=== PATIENT | male | born 1950 | race Caucasian/White ===

== ENCOUNTER 2020-01-29 07:21 | Outpatient (CLI) | payer MEDICARE, SELFPAY ==
[2020-01-29 08:22] LABS: Alanine Aminotransferase 17 U/L (4-50); Alkaline Phosphatase 75 U/L (38-126); Aspartate Amino Transferase 21 U/L (17-59); Bilirubin,Total 0.6 mg/dL (0.2-1.3); Blood Urea Nitrogen 19 mg/dL (9-20); Carbon Dioxide 25 mmol/L (22-30); Chloride 106 mmol/L (98-107); Cholesterol 159 mg/dL (0-200); Estimated Glomerular Filt Rate 50; Glucose 160 mg/dL (75-110); HDL Direct 37 mg/dL; Potassium 4.4 mmol/L (3.4-5.0); Sodium 139 mmol/L (137-145); Triglycerides 147 mg/dL (<150)
[2020-01-29 08:34] LABS: LDL Cholesterol Direct 94 mg/dL
[2020-01-29 08:52] LABS: Prostate Specific Antigen 1.8 ng/mL (< OR = 4.0)
[2020-01-29 09:11] LABS: Hemoglobin A1C 6.9 % (<5.7)
== END 2020-01-29 07:22 | disposition home or self-care (01) ==
PROVIDERS: Visit Provider Surgery
DX: E11.29 Type 2 diabetes mellitus with other diabetic kidney complication (principal); E78.5 Hyperlipidemia, unspecified; Z12.5 Encounter for screening for malignant neoplasm of prostate; R39.9 Unspecified symptoms and signs involving the genitourinary system
CPT/HCPCS: 36415; 80053; 80061; 83036; 84153; G0103

== ENCOUNTER 2020-06-16 06:31 | Outpatient (CLI) | payer MEDICARE, SELFPAY ==
[2020-06-16 07:49] LABS: Hemoglobin A1C 6.6 % (<5.7)
[2020-06-16 07:53] LABS: Alanine Aminotransferase 30 U/L (4-50); Albumin Level 4.3 g/dL (3.5-5.1); Alkaline Phosphatase 75 U/L (38-126); Anion Gap 12.6 mmol/L (7-16); Aspartate Amino Transferase 30 U/L (17-59); Bilirubin,Total 0.5 mg/dL (0.2-1.3); Blood Urea Nitrogen 21 mg/dL (9-20); Calcium 9.3 mg/dL (8.4-10.2); Carbon Dioxide 26 mmol/L (22-30); Chloride 104 mmol/L (98-107); Estimated Glomerular Filt Rate 54; Glucose 164 mg/dL (75-110); Potassium 4.6 mmol/L (3.4-5.0); Sodium 138 mmol/L (137-145)
== END 2020-06-16 06:32 | disposition home or self-care (01) ==
PROVIDERS: Visit Provider Physician Assistant
DX: E11.29 Type 2 diabetes mellitus with other diabetic kidney complication (principal); N18.3 Chronic kidney disease, stage 3 (moderate)
CPT/HCPCS: 36415; 80053; 83036

== ENCOUNTER 2020-08-25 14:47 | Outpatient (CLI) | payer MEDICARE, SELFPAY ==
[2020-08-25 15:32] LABS: Alanine Aminotransferase 18 U/L (4-50); Aspartate Amino Transferase 23 U/L (17-59)
== END 2020-08-25 14:48 | disposition home or self-care (01) ==
PROVIDERS: Visit Provider Podiatrist Foot & Ankle Surgery
DX: B35.1 Tinea unguium (principal)
CPT/HCPCS: 36415; 84450; 84460

== ENCOUNTER 2021-02-03 06:57 | Outpatient (CLI) | payer MEDICARE, SELFPAY ==
[2021-02-03 07:36] LABS: Hematocrit 33.1 % (42.0-52.0); Hemoglobin 11.5 g/dL (14.0-18.0); Mean Corpuscular HGB Conc 34.7 g/dl (32-36); Mean Corpuscular Hemoglobin 33.7 pg (26-34); Mean Corpuscular Volume 97.1 fl (80-100); Mean Platelet Volume 10.3 fl (7.4-10.4); Platelet Count Result 215 k/mm3 (150-375); Red Blood Count 3.41 M/mm3 (4.6-6.20); White Blood Count 6.7 K/mm3 (4.5-10.0)
[2021-02-03 07:46] LABS: Hemoglobin A1C 6.7 % (<5.7)
[2021-02-03 07:47] LABS: Alanine Aminotransferase 14 U/L (4-50); Albumin Level 3.9 g/dL (3.5-5.1); Alkaline Phosphatase 69 U/L (38-126); Anion Gap 8 mmol/L (8-16); Aspartate Amino Transferase 21 U/L (17-59); Bilirubin,Total 0.4 mg/dL (0.2-1.3); Blood Urea Nitrogen 21 mg/dL (9-20); Calcium 8.9 mg/dL (8.4-10.2); Carbon Dioxide 25 mmol/L (22-30); Chloride 108 mmol/L (98-107); Cholesterol 157 mg/dL (0-200); Estimated Glomerular Filt Rate 54; Glucose 164 mg/dL (75-110); HDL Direct 41 mg/dL; Potassium 4.3 mmol/L (3.4-5.0); Sodium 141 mmol/L (137-145); Triglycerides 89 mg/dL (<150)
[2021-02-03 07:58] LABS: LDL Cholesterol Direct 86 mg/dL
[2021-02-03 08:04] LABS: Add Urine Microscopic? YES; Appearance Urine Cloudy (Clear); Bilirubin Urine Negative (Negative); Blood Urine 2+ (Negative); Color Urine Yellow (Yellow); Glucose Urine UA 1+ mg/dL (Negative); Ketones Urine Negative (Negative); Leukocyte Esterase Ur 3+ LEU/UL (NEGATIVE); Mucus Urine Rare /lpf; Nitrate Urine Negative (Negative); Protein Urine 2+ mg/dL (Negative); RBC Urine >75 /hpf (0-2); Specific Grav Ur 1.014 (1.001-1.035); Squamous Epithelial Cell Urine Rare /hpf (Few); Urobilinogen Urine Negative mg/dL (<2.0); WBC Urine >75 /hpf (0-3)
[2021-02-03 08:12] LABS: Creatinine Urine 83.4 mg/dL
[2021-02-03 08:34] LABS: MALB Creatinine Ratio 282.7 mg/g (0-30); Microalbumin Urine Random 235.8 mg/L (0-16.7)
== END 2021-02-03 06:58 | disposition home or self-care (01) ==
PROVIDERS: PCP Family Medicine; Visit Provider Family Medicine
DX: E11.9 Type 2 diabetes mellitus without complications (principal); N18.30 Chronic kidney disease, stage 3 unspecified; E78.2 Mixed hyperlipidemia; Z00.00 Encounter for general adult medical examination without abnormal findings
CPT/HCPCS: 36415; 80053; 80061; 81001; 82043; 83036; 84443; 85027

== ENCOUNTER → 2021-02-05 00:56 | Outpatient (CLI) | payer MEDICARE, SELFPAY ==
[2021-02-05 19:13] LABS: SARS-CoV-2 RNA PCR Negative
== END ==
PROVIDERS: PCP Family Medicine; Visit Provider Internal Medicine Gastroenterology
DX: Z01.812 Encounter for preprocedural laboratory examination (principal); Z20.822 Contact with and (suspected) exposure to COVID-19
CPT/HCPCS: C9803; U0003; U0005

== ENCOUNTER 2021-02-09 02:08 | Day surgery (SDC) | payer MEDICARE, SELFPAY ==
[2021-01-27 15:54] VITALS: BMI 23.9
[2021-02-09 06:19] VITALS: BP 160/93; PULSE 90; RESP 18; O2SAT 100
[2021-02-09] MEDS: LACTATED RINGERS 1,000 ML 150 ML IV CONT (06:29)
[2021-02-09 07:19] LABS: Glucose Point of Care 148 (65-105)
--- NOTE | 2021-02-09 07:20 | WPDANESEPPF ---
Anes - Initial Pre Proc Eval Procedure: Operation Date: 02/09/21 07:30 Proposed Procedures p Screening Colonoscopy - Jagjit Valadez MD Date/Time: 02/09/21 07:20 Surgeon: Jagjit Valadez MD Pre Op Diagnosis: Neoplasm Screening Patient Data Age: 70 Gender: M Height: 6 ft Weight: 78.3 kg Last Vital Signs Pulse 90 02/09/21 06:19 Resp 18 02/09/21 06:19 BP 160/93 H 02/09/21 06:19 Pulse Ox 100 02/09/21 06:19 Allergies Allergy/AdvReac Type Severity Reaction Status Date / Time No Known Allergies Allergy Verified 02/09/21 06:17 Home Medications Medication Instructions Recorded Confirmed Type oxybutynin chloride 10 mg 10 mg PO DAILY 01/26/20 01/27/21 History tablet,extended release 24 hr tamsulosin 0.4 mg capsule 0.4 mg PO DAILY #90 cap 04/13/20 01/27/21 Rx glimepiride 4 mg tablet 4 mg PO DAILY #90 tablet 08/23/20 01/27/21 Rx simvastatin 20 mg tablet 20 mg PO DAILY #90 tablet 12/13/20 01/27/21 Rx finasteride 5 mg PO DAILY 01/27/21 01/27/21 History metformin 1,000 mg PO DAILY 01/27/21 01/27/21 History ranitidine HCl 300 mg PO PRN PRN 01/27/21 01/27/21 History terbinafine HCl 250 mg PO DAILY 01/27/21 01/27/21 History Laboratory Tests 02/09/21 06:24 POC Capillary Glucose 148 mg/dl H mg/dl (65-105) Patient hx anesthesia problems: none Family hx anesthesia problems: none PMFSH Past Medical History Medical History (System 08/18/20 @ 10:26 by Yovana Aleman) BPH (benign prostatic hyperplasia) CKD (chronic kidney disease), stage III Dizziness H/O renal calculi HLD (hyperlipidemia) Indigestion Nephrolithiasis Type 2 diabetes mellitus with microalbuminuria Type 2 diabetes, controlled, with renal manifestation Surgical History Surgical History History of appendectomy History of lithotripsy Family History Family History Father Family history of cardiovascular disease Mother Family history of cardiovascular disease Cerebrovascular accident Social History Social History Smoking status: Never smoker Second hand tobacco smoke exposure: No Alcohol intake: never Drinks per week: 3 Substance use: never Substance use type: does not use Living arrangements: with family Gender identity (if verbalized by the patient): Male Spiritual care concerns: No Anes - Eval Final PreProcedure Day of Procedure 02/09/21 07:20 Patient weight: normal Heart: regular rate and rhythm Lungs: clear to auscultation Airway: Mallampati scale class III Neurological: alert and oriented Last oral intake: >/= 8 hours ASA classification: III Emergent: no Anesthetic plan: proceed Anesthesia type and monitoring: general GIVS and standard monitoring Informed Consent: The patient's anesthetic plan and its attendant risks and benefits were discussed with the patient/family/POA. Questions were solicited and answers provided to the satisfaction of the patient/family/POA.
--- NOTE | 2021-02-09 07:30 | PM.HPGS ---
History of Present Illness History of Present Illness Consent: Risks, benefits, and alternatives have been discussed and questions answered. Patient agrees to proceed with procedure. Chief complaint: Neoplasm Screening Narrative: Pa Herzog Jr. is a 70 year old male with colon polyps in 2014 Review of Systems Constitutional: Constitutional: Denies headache(s) and Denies weakness Eyes: Eyes: Denies blurry vision ENT: Reports Normal hearing present, Denies headache(s) and Denies neck pain Cardiovascular: Cardiovascular: Denies chest pain and Denies dyspnea Respiratory: Respiratory: Denies dyspnea Gastrointestinal: Gastrointestinal: Reports no additional gastrointestinal complaints Genitourinary: Genitourinary: Denies dysuria Musculoskeletal: Musculoskeletal: Denies neck pain Integumentary/Breasts: Skin/Breast: Denies dry skin Neurologic: Reports Normal hearing present, Denies headache(s) and Denies weakness Psychiatric: Psychiatric: Denies anxiety Endocrine: Endocrine: Denies change in body appearance Hematologic/Lymphatic: Hematologic/Lymphatic: Denies easy bleeding Allergic/Immunologic: Allergic/Immunologic: Denies urticaria PMFSH Past Medical History Medical History (Updated 02/09/21 @ 07:30 by Jagjit Valadez MD) Adenomatous colon polyp BPH (benign prostatic hyperplasia) CKD (chronic kidney disease), stage III Dizziness H/O renal calculi HLD (hyperlipidemia) Indigestion Nephrolithiasis Type 2 diabetes mellitus with microalbuminuria Type 2 diabetes, controlled, with renal manifestation Surgical History Surgical History History of appendectomy History of lithotripsy Family History Family History Father Family history of cardiovascular disease Mother Family history of cardiovascular disease Cerebrovascular accident Social History Social History Smoking status: Never smoker Second hand tobacco smoke exposure: No Alcohol intake: never Drinks per week: 3 Substance use: never Substance use type: does not use Living arrangements: with family Gender identity (if verbalized by the patient): Male Spiritual care concerns: No Meds Home Medications and Allergies Home Medications Medication Instructions Recorded Confirmed Type oxybutynin chloride 10 mg 10 mg PO DAILY 01/26/20 01/27/21 History tablet,extended release 24 hr tamsulosin 0.4 mg capsule 0.4 mg PO DAILY #90 cap 04/13/20 01/27/21 Rx glimepiride 4 mg tablet 4 mg PO DAILY #90 tablet 08/23/20 01/27/21 Rx simvastatin 20 mg tablet 20 mg PO DAILY #90 tablet 12/13/20 01/27/21 Rx finasteride 5 mg PO DAILY 01/27/21 01/27/21 History metformin 1,000 mg PO DAILY 01/27/21 01/27/21 History ranitidine HCl 300 mg PO PRN PRN 01/27/21 01/27/21 History terbinafine HCl 250 mg PO DAILY 01/27/21 01/27/21 History Allergies Allergy/AdvReac Type Severity Reaction Status Date / Time No Known Allergies Allergy Verified 02/09/21 06:17 Vital Signs Vital Signs - 24 hr 02/09/21 06:19 Pulse Rate 90 Respiratory Rate 18 Blood Pressure 160/93 H Pulse Oximetry 100 Exam Const: General: comfortable and no acute distress HENMT: General nose exam: Normal nares present Eyes: General: appearance normal, both eyes and all related structures Neck: Neck: no JVD Resp: Auscultation: clear to auscultation bilaterally Cardio: Rate: regular rate Rhythm: regular rhythm GI: Inspection: non-distended GI Palp: Yes Soft to palpation Skin: General skin exam: normal color Neuro: General: gait normal Speech: normal speech Extrem: General: normal to inspection Psych: Mental Status: mental status grossly normal Assessment and Plan Assessment and plan (1) Adenomatous colon polyp: Code(s): D12.6 - Benign neoplasm of colon, unspecified
[2021-02-09 07:56] VITALS: BP 107/73; PULSE 62; RESP 17; O2SAT 99
[2021-02-09 08:06] VITALS: BP 123/77; PULSE 58; RESP 15; O2SAT 99
[2021-02-09 08:16] VITALS: BP 131/85; PULSE 64; RESP 15; O2SAT 99
== END 2021-02-09 08:43 | disposition home or self-care (01) ==
PROVIDERS: PCP Family Medicine; Visit Provider Internal Medicine Gastroenterology
PROC: 0DJD8ZZ Inspection of Lower Intestinal Tract, Via Natural or Artificial Opening Endoscopic (ICD-10-PCS; CPT 45378; principal; 2021-02-09 07:30)
DX: Z12.11 Encounter for screening for malignant neoplasm of colon (principal); D12.3 Benign neoplasm of transverse colon; K63.5 Polyp of colon; K57.30 Diverticulosis of large intestine without perforation or abscess without bleeding; K64.8 Other hemorrhoids; N18.30 Chronic kidney disease, stage 3 unspecified; E11.22 Type 2 diabetes mellitus with diabetic chronic kidney disease; E11.29 Type 2 diabetes mellitus with other diabetic kidney complication; E78.5 Hyperlipidemia, unspecified; N40.0 Benign prostatic hyperplasia without lower urinary tract symptoms; Z79.84 Long term (current) use of oral hypoglycemic drugs
CPT/HCPCS: 45385; 82948; 88305; C9803; J2001; J2704; J7120; U0003; U0005

== ENCOUNTER 2021-03-08 13:57 | Outpatient (CLI) | payer MEDICARE, SELFPAY ==
[2021-03-08 14:25] LABS: Add Urine Microscopic? YES; Appearance Urine Turbid (Clear); Bacteria Urine 1+ /hpf; Bilirubin Urine Negative (Negative); Blood Urine 3+ (Negative); Color Urine Yellow (Yellow); Glucose Urine UA 2+ mg/dL (Negative); Ketones Urine Negative (Negative); Leukocyte Esterase Ur 3+ LEU/UL (NEGATIVE); Mucus Urine Rare /lpf; Nitrate Urine Negative (Negative); Protein Urine 3+ mg/dL (Negative); RBC Urine >75 /hpf (0-2); Specific Grav Ur 1.016 (1.001-1.035); Urobilinogen Urine Negative mg/dL (<2.0); WBC Clumps Urine Present /HPF; WBC Urine >75 /hpf (0-3)
== END 2021-03-08 13:58 | disposition home or self-care (01) ==
LOC: ANHLAB 13:59
PROVIDERS: PCP Family Medicine; Visit Provider Physician Assistant
DX: R31.9 Hematuria, unspecified (principal)
CPT/HCPCS: 81001; 87086

== ENCOUNTER 2021-03-09 09:38 | Outpatient (CLI) | payer MEDICARE, SELFPAY ==
--- NOTE | ~2021-03-09 | CT_ITS ---
EXAMINATION: CT abdomen pelvis wo con DATE: 03/09/2021 10:05 INDICATION: Hematuria. TECHNIQUE: Computed tomography (CT) of the abdomen and pelvis was performed without intravenous contr ast. Automated exposure control and iterative reconstruction technique were employed. The dose-length product was 195.91 mGy-cm. COMPARISON: CT abdomen and pelvis 07/26/2019, 10/02/2018 FINDINGS: The visualized portions of the lung bases are clear without pneumonia or pleural effusion. The heart size is normal. No pericardial effusion. The liver, gallbladder, spleen, pancreas, and adre nal glands are normal. There is cortical thinning of right kidney. There is severe right hydronephros is and hydroureter. Left kidney is normal. There is diffuse bladder wall thickening. There is diverti culosis of the colon without evidence of diverticulitis. There are no dilated loops of bowel. The jillian endix is not visualized. There are no pathologically enlarged lymph nodes. There is no free intraperi toneal fluid. There is moderate lumbar spondylosis. IMPRESSION: 1. Chronic diffuse bladder wall thickening, which may be secondary to chronic outlet obstruction. 2. Severe right hydronephrosis and hydroureter. Mild right kidney atrophy. Reviewed, dictated and finalized at location B. IMPRESSION: 1. Chronic diffuse bladder wall thickening, which may be secondary to chronic o utlet obstruction. 2. Severe right hydronephrosis and hydroureter. Mild right kidney atrophy.
== END 2021-03-09 09:39 | disposition home or self-care (01) ==
LOC: ANHIMG 09:40
PROVIDERS: PCP Family Medicine; Visit Provider Family Medicine
DX: R31.9 Hematuria, unspecified (principal); N13.30 Unspecified hydronephrosis; M47.816 Spondylosis without myelopathy or radiculopathy, lumbar region
CPT/HCPCS: 74176

== ENCOUNTER 2021-07-04 11:56 | Outpatient (CLI) | payer MEDICARE, SELFPAY ==
[2021-07-04 13:18] LABS: Alanine Aminotransferase 18 U/L (4-50); Albumin Level 4.7 g/dL (3.5-5.1); Alkaline Phosphatase 94 U/L (38-126); Anion Gap 7 mmol/L (8-16); Aspartate Amino Transferase 27 U/L (17-59); Bilirubin,Total 0.4 mg/dL (0.2-1.3); Blood Urea Nitrogen 21 mg/dL (9-20); Calcium 9.7 mg/dL (8.4-10.2); Carbon Dioxide 23 mmol/L (22-30); Chloride 105 mmol/L (98-107); Estimated Glomerular Filt Rate 50; Glucose 172 mg/dL (65-110); Potassium 4.7 mmol/L (3.4-5.0); Sodium 135 mmol/L (137-145)
== END 2021-07-04 11:57 | disposition home or self-care (01) ==
LOC: ANHLAB 11:58
PROVIDERS: PCP Family Medicine; Visit Provider Family Medicine
DX: E11.29 Type 2 diabetes mellitus with other diabetic kidney complication (principal)
CPT/HCPCS: 36415; 80053; 83036

== ENCOUNTER 2021-07-21 14:34 | Outpatient (CLI) | payer MEDICARE, SELFPAY ==
--- NOTE | ~2021-07-21 | XR_ITS ---
EXAMINATION: XR ankle LT min 3V DATE: 07/21/2021 14:55 INDICATION: Left ankle injury and swelling and pain. TECHNIQUE: 4 views of left ankle were obtained. COMPARISON: None. FINDINGS: Bone alignment is normal. No fracture. There is ankle joint osteoarthritis including osteoc hondral lesions of the medial and lateral aspects of the talar dome. There is mild osteoarthritis of talonavicular joint. Ankle soft tissue swelling is noted. IMPRESSION: 1. Polyarticular osteoarthritis. Reviewed, dictated and finalized at location A.
== END 2021-07-21 14:35 | disposition home or self-care (01) ==
LOC: ANHIMG 14:38
PROVIDERS: PCP Family Medicine; Visit Provider Nurse Practitioner Family
DX: S99.912A Unspecified injury of left ankle, initial encounter (principal); M15.9 Polyosteoarthritis, unspecified
CPT/HCPCS: 73610

== ENCOUNTER 2021-09-27 14:26 | Outpatient (CLI) | payer MEDICARE, SELFPAY ==
--- NOTE | ~2021-09-27 | XR_ITS ---
EXAMINATION: XR ankle LT 2V EXAM DATE: 09/27/2021 14:41 INDICATION: M25.572 - Pain in left ankle and joints of left foot. Complaining of left ankle pain when going down the stairs. no known injury. TECHNIQUE: Frontal and lateral projections of the left ankle. Comparison is made to prior examinatio n from 07/21/2021. FINDINGS: There is mild left ankle primary osteoarthritis. There are no acute fractures or dislocatio ns identified. There is no subcutaneous gas. The soft tissue is unremarkable. There are no radiop aque foreign bodies. IMPRESSION: Mild left ankle osteoarthritis. Reviewed, dictated and finalized at location A. 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
== END 2021-09-27 14:27 | disposition home or self-care (01) ==
LOC: ANHIMG 14:30
PROVIDERS: PCP Family Medicine; Visit Provider Family Medicine
DX: M25.572 Pain in left ankle and joints of left foot (principal); M19.072 Primary osteoarthritis, left ankle and foot
CPT/HCPCS: 73600

== ENCOUNTER 2021-09-27 14:45 | Outpatient (CLI) | payer MEDICARE, SELFPAY ==
[2021-09-27 15:30] LABS: Alanine Aminotransferase 16 U/L (4-50); Albumin Level 4.4 g/dL (3.5-5.1); Alkaline Phosphatase 77 U/L (38-126); Anion Gap 10 mmol/L (8-16); Aspartate Amino Transferase 23 U/L (17-59); Bilirubin,Total 0.5 mg/dL (0.2-1.3); Blood Urea Nitrogen 18 mg/dL (9-20); Calcium 9.4 mg/dL (8.4-10.2); Carbon Dioxide 25 mmol/L (22-30); Chloride 103 mmol/L (98-107); Estimated Glomerular Filt Rate 46; Glucose 278 mg/dL (65-110); Potassium 4.7 mmol/L (3.4-5.0); Sodium 138 mmol/L (137-145)
[2021-09-27 15:47] LABS: Hemoglobin A1C 8.4 % (<5.7)
== END 2021-09-27 14:46 | disposition home or self-care (01) ==
LOC: ANHLAB 14:49
PROVIDERS: PCP Family Medicine; Visit Provider Family Medicine
DX: E11.29 Type 2 diabetes mellitus with other diabetic kidney complication (principal); R80.9 Proteinuria, unspecified
CPT/HCPCS: 36415; 73600; 80053; 83036

== ENCOUNTER 2022-03-16 06:48 | Outpatient (CLI) | payer MEDICARE, SELFPAY ==
[2022-03-16 07:27] LABS: Hematocrit 33.6 % (42.0-52.0); Hemoglobin 11.2 g/dL (14.0-18.0); Mean Corpuscular HGB Conc 33.3 g/dl (32-36); Mean Corpuscular Hemoglobin 33.3 pg (26-34); Platelet Count Result 163 k/mm3 (150-375); Red Blood Count 3.36 M/mm3 (4.6-6.20); Red Cell Distribution Width 12.7 % (11.5-14.5)
[2022-03-16 07:39] LABS: Add Urine Microscopic? YES; Appearance Urine Cloudy (Clear); Bilirubin Urine Negative (Negative); Blood Urine 3+ (Negative); Color Urine Yellow (Yellow); Glucose Urine UA 1+ mg/dL (Negative); Ketones Urine Negative (Negative); Leukocyte Esterase Ur 3+ LEU/UL (NEGATIVE); Mucus Urine Rare /lpf; Nitrate Urine Negative (Negative); Protein Urine 2+ mg/dL (Negative); RBC Urine >75 /hpf (0-2); Specific Grav Ur 1.015 (1.001-1.035); Urobilinogen Urine Negative mg/dL (<2.0); WBC Clumps Urine Present /HPF; WBC Urine >75 /hpf (0-3)
[2022-03-16 07:45] LABS: Alanine Aminotransferase 17 U/L (4-50); Albumin Level 4.3 g/dL (3.5-5.1); Alkaline Phosphatase 74 U/L (38-126); Anion Gap 8 mmol/L (8-16); Aspartate Amino Transferase 27 U/L (17-59); Bilirubin,Total 0.4 mg/dL (0.2-1.3); Blood Urea Nitrogen 25 mg/dL (9-20); Calcium 8.8 mg/dL (8.4-10.2); Carbon Dioxide 23 mmol/L (22-30); Chloride 110 mmol/L (98-107); Cholesterol 161 mg/dL (0-200); Estimated Glomerular Filt Rate 43; Glucose 161 mg/dL (65-110); HDL Direct 34 mg/dL; Potassium 4.2 mmol/L (3.4-5.0); Sodium 141 mmol/L (137-145); Triglycerides 117 mg/dL (<150)
[2022-03-16 07:57] LABS: LDL Cholesterol Direct 81 mg/dL
[2022-03-16 07:58] LABS: Hemoglobin A1C 6.5 % (<5.7)
[2022-03-16 08:11] LABS: Prostate Specific Antigen 0.5 ng/mL (< OR = 4.0)
[2022-03-16 08:35] LABS: Creatinine Urine 96.9 mg/dL
[2022-03-16 08:58] LABS: MALB Creatinine Ratio 252.9 mg/g (0-30); Microalbumin Urine Random 245.1 mg/L (0-16.7)
== END 2022-03-16 06:49 | disposition home or self-care (01) ==
LOC: ANHLAB 06:54
PROVIDERS: PCP Family Medicine; Visit Provider Family Medicine
DX: E11.22 Type 2 diabetes mellitus with diabetic chronic kidney disease (principal); N18.30 Chronic kidney disease, stage 3 unspecified; E78.5 Hyperlipidemia, unspecified; R35.1 Nocturia; Z00.00 Encounter for general adult medical examination without abnormal findings
CPT/HCPCS: 36415; 80053; 80061; 81001; 82043; 83036; 84153; 84443; 85027

== ENCOUNTER 2022-07-13 10:59 | Outpatient (CLI) | payer MEDICARE, SELFPAY ==
[2022-07-13 12:21] LABS: Alanine Aminotransferase 17 U/L (6-50); Albumin Level 4.3 g/dL (3.5-5.1); Alkaline Phosphatase 69 U/L (38-126); Anion Gap 12 mmol/L (8-16); Aspartate Amino Transferase 25 U/L (17-59); Bilirubin,Total 0.5 mg/dL (0.2-1.3); Blood Urea Nitrogen 21 mg/dL (9-20); Calcium 9.5 mg/dL (8.4-10.2); Carbon Dioxide 22 mmol/L (22-30); Chloride 104 mmol/L (98-107); Estimated Glomerular Filt Rate 40; Glucose 116 mg/dL (65-110); Potassium 4.2 mmol/L (3.4-5.0); Sodium 138 mmol/L (137-145)
[2022-07-13 13:17] LABS: Hemoglobin A1C 6.8 % (<5.7)
== END 2022-07-13 11:00 | disposition home or self-care (01) ==
LOC: ANHLAB 11:02
PROVIDERS: PCP Family Medicine; Visit Provider Physician Assistant
DX: E11.29 Type 2 diabetes mellitus with other diabetic kidney complication (principal); N18.30 Chronic kidney disease, stage 3 unspecified
CPT/HCPCS: 36415; 80053; 83036

== ENCOUNTER 2023-03-02 13:06 | Outpatient (CLI) | payer MEDICARE, SELFPAY ==
[2023-03-02 13:47] LABS: Alanine Aminotransferase 26 U/L (6-50); Albumin Level 4.6 g/dL (3.5-5.1); Alkaline Phosphatase 72 U/L (38-126); Anion Gap 8 mmol/L (8-16); Aspartate Amino Transferase 30 U/L (17-59); Bilirubin,Total 0.6 mg/dL (0.2-1.3); Blood Urea Nitrogen 24 mg/dL (9-20); Calcium 9.6 mg/dL (8.4-10.2); Carbon Dioxide 25 mmol/L (22-30); Chloride 105 mmol/L (98-107); Estimated Glomerular Filt Rate 40; Glucose 82 mg/dL (65-110); Potassium 4.4 mmol/L (3.4-5.0); Sodium 138 mmol/L (137-145)
[2023-03-02 14:01] LABS: Hemoglobin A1C 6.4 % (<5.7)
== END 2023-03-02 13:07 | disposition home or self-care (01) ==
PROVIDERS: PCP Family Medicine; Visit Provider Family Medicine
DX: E11.29 Type 2 diabetes mellitus with other diabetic kidney complication (principal); R80.9 Proteinuria, unspecified
CPT/HCPCS: 36415; 80053; 83036

== ENCOUNTER 2023-07-13 07:02 | Outpatient (CLI) | payer MEDICARE, SELFPAY ==
[2023-07-13 07:38] LABS: Hematocrit 35.5 % (42.0-52.0); Mean Corpuscular HGB Conc 33.8 g/dl (32-36); Mean Corpuscular Hemoglobin 32.6 pg (26-34); Mean Corpuscular Volume 96.5 fl (80-100); Mean Platelet Volume 10.5 fl (7.4-10.4); Platelet Count Result 172 k/mm3 (150-375); Red Blood Count 3.68 M/mm3 (4.6-6.20); Red Cell Distribution Width 12.3 % (11.5-14.5); White Blood Count 6.6 K/mm3 (4.5-10.0)
[2023-07-13 07:38] LABS: Appearance Urine Clear (Clear); Bilirubin Urine Negative (Negative); Blood Urine Negative (Negative); Color Urine Yellow (Yellow); Glucose Urine UA Negative (Negative); Ketones Urine Negative (Negative); Leukocyte Esterase Ur Negative LEU/UL (NEGATIVE); Nitrate Urine Negative (Negative); Protein Urine Negative (Negative); Specific Grav Ur 1.015 (1.001-1.035); Urobilinogen Urine 0.2 mg/dL (<2.0); pH Urine 5.5 (5.0-9.0)
[2023-07-13 07:46] LABS: Add Urine Microscopic? NO
[2023-07-13 08:00] LABS: Alanine Aminotransferase 27 U/L (6-50); Albumin Level 4.2 g/dL (3.5-5.1); Alkaline Phosphatase 67 U/L (38-126); Anion Gap 5 mmol/L (8-16); Aspartate Amino Transferase 30 U/L (17-59); Bilirubin,Total 0.4 mg/dL (0.2-1.3); Blood Urea Nitrogen 29 mg/dL (9-20); Calcium 9.2 mg/dL (8.4-10.2); Carbon Dioxide 22 mmol/L (22-30); Chloride 109 mmol/L (98-107); Cholesterol 175 mg/dL (0-200); Estimated Glomerular Filt Rate 35; Glucose 84 mg/dL (65-110); HDL Direct 38 mg/dL; Potassium 4.7 mmol/L (3.4-5.0); Sodium 136 mmol/L (137-145); Triglycerides 75 mg/dL (<150)
[2023-07-13 08:11] LABS: LDL Cholesterol Direct 101 mg/dL
[2023-07-13 08:29] LABS: Creatinine Urine 96.7 mg/dL
[2023-07-13 08:31] LABS: Prostate Specific Antigen 0.4 ng/mL (< OR = 4.0)
[2023-07-13 09:20] LABS: MALB Creatinine Ratio < 6.2 mg/g (0-30); Microalbumin Urine Random < 6.0 mg/L (0-16.7)
[2023-07-13 11:32] LABS: Hemoglobin A1C 6.2 % (<5.7)
== END 2023-07-13 07:03 | disposition home or self-care (01) ==
PROVIDERS: PCP Family Medicine; Visit Provider Family Medicine
DX: E11.29 Type 2 diabetes mellitus with other diabetic kidney complication (principal); R80.9 Proteinuria, unspecified; N40.0 Benign prostatic hyperplasia without lower urinary tract symptoms; E78.5 Hyperlipidemia, unspecified; N18.30 Chronic kidney disease, stage 3 unspecified
CPT/HCPCS: 36415; 80053; 80061; 81003; 82043; 83036; 84153; 84443; 85027

== ENCOUNTER 2023-10-30 07:01 | Outpatient (CLI) | payer MEDICARE, SELFPAY ==
[2023-10-30 08:17] LABS: Alanine Aminotransferase 22 U/L (6-50); Albumin Level 4.2 g/dL (3.5-5.1); Alkaline Phosphatase 71 U/L (38-126); Anion Gap 9 mmol/L (8-16); Aspartate Amino Transferase 26 U/L (17-59); Bilirubin,Total 0.6 mg/dL (0.2-1.3); Blood Urea Nitrogen 29 mg/dL (9-20); Calcium 9.5 mg/dL (8.4-10.2); Carbon Dioxide 21 mmol/L (22-30); Chloride 109 mmol/L (98-107); Estimated Glomerular Filt Rate 35; Glucose 129 mg/dL (65-110); Potassium 4.6 mmol/L (3.4-5.0); Sodium 139 mmol/L (137-145)
[2023-10-30 09:20] LABS: Hemoglobin A1C 6.5 % (<5.7)
== END 2023-10-30 07:02 | disposition home or self-care (01) ==
PROVIDERS: PCP Family Medicine; Visit Provider Family Medicine
DX: R80.9 Proteinuria, unspecified (principal); E11.29 Type 2 diabetes mellitus with other diabetic kidney complication
CPT/HCPCS: 36415; 80053; 83036

== ENCOUNTER 2024-03-03 14:32 | Outpatient (CLI) | payer MEDICARE, SELFPAY ==
[2024-03-03 15:05] LABS: Basophils Percent Auto 0.4 % (0.2-1.2); Eosinophils Absolute Auto 0.1 K/mm3 (0-0.3); Eosinophils Percent Auto 1.9 % (0-4.4); Hematocrit 34.7 % (42.0-52.0); Hemoglobin 11.9 g/dL (14.0-18.0); Immature Granulocyte Absolute 0.03 K/mm3 (0.00-0.031); Immature Granulocyte Percent A 0.4 % (0-0.5); Lymphocytes Absolute Auto 1.41 K/mm3 (0.9-3.2); Lymphocytes Percent Auto 19.5 % (18.3-44.2); Mean Corpuscular HGB Conc 34.3 g/dl (32-36); Mean Corpuscular Hemoglobin 33.7 pg (26-34); Mean Corpuscular Volume 98.3 fl (80-100); Mean Platelet Volume 10.4 fl (7.4-10.4); Monocytes Absolute Auto 0.6 K/mm3 (0.1-0.6); Monocytes Percent Auto 8.3 % (2.6-8.5); Neutrophils Percent Auto 69.5 % (45.5-73.1); Platelet Count Result 185 k/mm3 (150-375); Red Blood Count 3.53 M/mm3 (4.6-6.20); Red Cell Distribution Width 12.8 % (11.5-14.5); White Blood Count 7.2 K/mm3 (4.5-10.0)
[2024-03-03 15:18] LABS: Alanine Aminotransferase 17 U/L (6-50); Albumin Level 4.4 g/dL (3.5-5.1); Alkaline Phosphatase 69 U/L (38-126); Anion Gap 8 mmol/L (4-12); Aspartate Amino Transferase 23 U/L (17-59); Bilirubin,Total 0.5 mg/dL (0.2-1.3); Blood Urea Nitrogen 27 mg/dL (9-20); Calcium 9.6 mg/dL (8.4-10.2); Carbon Dioxide 24 mmol/L (22-30); Chloride 107 mmol/L (98-107); Estimated Glomerular Filt Rate 37; Glucose 127 mg/dL (65-110); Potassium 4.3 mmol/L (3.4-5.0); Sodium 139 mmol/L (137-145)
[2024-03-03 15:29] LABS: Parathyroid Intact 43.2 pg/mL (7.5-53.5)
[2024-03-03 15:45] LABS: Creatinine Urine 93.5 mg/dL
[2024-03-03 15:49] LABS: MALB Creatinine Ratio 7.8 mg/g (0-30); Microalbumin Urine Random 7.3 mg/L (0-16.7)
[2024-03-03 15:56] LABS: Hemoglobin A1C 6.1 % (<5.7)
== END 2024-03-03 14:33 | disposition home or self-care (01) ==
PROVIDERS: PCP Family Medicine; Referring Provider Internal Medicine Nephrology; Visit Provider Family Medicine
DX: R80.9 Proteinuria, unspecified (principal); E11.29 Type 2 diabetes mellitus with other diabetic kidney complication; N18.31 Chronic kidney disease, stage 3a
CPT/HCPCS: 36415; 80053; 82043; 83036; 83970; 85025

== ENCOUNTER 2024-05-21 09:53 | Outpatient (CLI) | payer MEDICARE, SELFPAY ==
[2024-05-21 10:50] LABS: Alanine Aminotransferase 23 U/L (6-50); Albumin Level 4.2 g/dL (3.5-5.1); Alkaline Phosphatase 64 U/L (38-126); Anion Gap 7 mmol/L (4-12); Aspartate Amino Transferase 30 U/L (17-59); Bilirubin,Total 0.6 mg/dL (0.2-1.3); Blood Urea Nitrogen 28 mg/dL (9-20); Carbon Dioxide 22 mmol/L (22-30); Chloride 111 mmol/L (98-107); Estimated Glomerular Filt Rate 31; Glucose 149 mg/dL (65-110); Potassium 4.9 mmol/L (3.4-5.0); Sodium 140 mmol/L (137-145)
== END 2024-05-21 09:54 | disposition home or self-care (01) ==
LOC: ANHLAB 09:55
PROVIDERS: PCP Family Medicine; Visit Provider Family Medicine
DX: R42 Dizziness and giddiness (principal); I12.9 Hypertensive chronic kidney disease with stage 1 through stage 4 chronic kidney disease, or unspecified chronic kidney disease
CPT/HCPCS: 36415; 80053

== ENCOUNTER 2024-07-03 07:26 | Outpatient (CLI) | payer MEDICARE, SELFPAY ==
[2024-07-03 08:14] LABS: Anion Gap 8 mmol/L (4-12); Blood Urea Nitrogen 30 mg/dL (9-20); Calcium 9.3 mg/dL (8.4-10.2); Carbon Dioxide 27 mmol/L (22-30); Chloride 105 mmol/L (98-107); Estimated Glomerular Filt Rate 35; Glucose 155 mg/dL (65-110); Potassium 4.8 mmol/L (3.4-5.0); Sodium 140 mmol/L (137-145)
== END 2024-07-03 07:27 | disposition home or self-care (01) ==
PROVIDERS: PCP Family Medicine; Visit Provider Internal Medicine Nephrology
DX: N18.31 Chronic kidney disease, stage 3a (principal)
CPT/HCPCS: 36415; 80048

== ENCOUNTER 2024-07-23 07:13 | Outpatient (CLI) | payer MEDICARE, SELFPAY ==
[2024-07-23 07:50] LABS: Add Urine Microscopic? NO; Appearance Urine Clear (Clear); Bilirubin Urine Negative (Negative); Blood Urine Negative (Negative); Color Urine Yellow (Yellow); Glucose Urine UA Negative (Negative); Ketones Urine Negative (Negative); Leukocyte Esterase Ur Negative LEU/UL (Negative); Nitrate Urine Negative (Negative); Protein Urine Negative (Negative); Specific Grav Ur 1.012 (1.001-1.035); Urobilinogen Urine 0.2 mg/dL (<2.0); pH Urine 6.5 (5.0-9.0)
[2024-07-23 07:58] LABS: Cholesterol 168 mg/dL (0-200); HDL Direct 37 mg/dL; Triglycerides 140 mg/dL (<150)
[2024-07-23 08:08] LABS: LDL Cholesterol Direct 85 mg/dL
[2024-07-23 08:28] LABS: Prostate Specific Antigen 0.6 ng/mL (< OR = 4.0)
[2024-07-23 09:04] LABS: Hemoglobin A1C 6.5 % (<5.7)
== END 2024-07-23 07:14 | disposition home or self-care (01) ==
LOC: ANHLAB 07:21
PROVIDERS: PCP Family Medicine; Referring Provider Physician Assistant; Visit Provider Family Medicine
DX: N40.0 Benign prostatic hyperplasia without lower urinary tract symptoms (principal); E11.29 Type 2 diabetes mellitus with other diabetic kidney complication; I12.9 Hypertensive chronic kidney disease with stage 1 through stage 4 chronic kidney disease, or unspecified chronic kidney disease; N18.9 Chronic kidney disease, unspecified; E78.5 Hyperlipidemia, unspecified; R35.1 Nocturia; R80.9 Proteinuria, unspecified; R39.15 Urgency of urination
CPT/HCPCS: 36415; 80061; 81003; 83036; 84153

== ENCOUNTER 2024-11-05 08:32 | Outpatient (CLI) | payer MEDICARE, SELFPAY ==
[2024-11-05 09:36] LABS: Basophils Percent Auto 0.6 % (0.2-1.2); Eosinophils Absolute Auto 0.2 K/mm3 (0-0.3); Eosinophils Percent Auto 3.2 % (0-4.4); Hematocrit 36.2 % (42.0-52.0); Hemoglobin 12.2 g/dL (14.0-18.0); Immature Granulocyte Absolute 0.02 K/mm3 (0.00-0.031); Immature Granulocyte Percent A 0.3 % (0-0.5); Lymphocytes Absolute Auto 1.37 K/mm3 (0.9-3.2); Lymphocytes Percent Auto 20.9 % (18.3-44.2); Mean Corpuscular HGB Conc 33.7 g/dl (32-36); Mean Corpuscular Hemoglobin 32.4 pg (26-34); Mean Corpuscular Volume 96.3 fl (80-100); Mean Platelet Volume 10.8 fl (7.4-10.4); Monocytes Absolute Auto 0.7 K/mm3 (0.1-0.6); Neutrophils Absolute Auto 4.3 K/mm3 (1.3-6.7); Platelet Count Result 181 k/mm3 (150-375); Red Blood Count 3.76 M/mm3 (4.6-6.20); Red Cell Distribution Width 12.9 % (11.5-14.5); White Blood Count 6.6 K/mm3 (4.5-10.0)
[2024-11-05 10:16] LABS: Alanine Aminotransferase 15 U/L (6-50); Albumin Level 4.3 g/dL (3.5-5.1); Alkaline Phosphatase 71 U/L (38-126); Anion Gap 5 mmol/L (4-12); Aspartate Amino Transferase 25 U/L (17-59); Bilirubin,Total 0.9 mg/dL (0.2-1.3); Blood Urea Nitrogen 32 mg/dL (9-20); Calcium 9.3 mg/dL (8.4-10.2); Carbon Dioxide 24 mmol/L (22-30); Chloride 110 mmol/L (98-107); Estimated Glomerular Filt Rate 31; Glucose 147 mg/dL (65-110); Potassium 5.1 mmol/L (3.4-5.0); Sodium 139 mmol/L (137-145)
[2024-11-05 10:30] LABS: Parathyroid Intact 47.8 pg/mL (14.5-75.2)
[2024-11-05 10:45] LABS: Hemoglobin A1C 6.7 % (<5.7)
== END 2024-11-05 08:33 | disposition home or self-care (01) ==
PROVIDERS: PCP Family Medicine; Referring Provider Family Medicine; Visit Provider Internal Medicine Nephrology
DX: I12.9 Hypertensive chronic kidney disease with stage 1 through stage 4 chronic kidney disease, or unspecified chronic kidney disease (principal); E11.22 Type 2 diabetes mellitus with diabetic chronic kidney disease; N18.31 Chronic kidney disease, stage 3a; R80.9 Proteinuria, unspecified; E11.29 Type 2 diabetes mellitus with other diabetic kidney complication
CPT/HCPCS: 36415; 80053; 83036; 83970; 85025

== ENCOUNTER 2025-08-07 15:29 | Outpatient (CLI) | payer MEDICARE, SELFPAY ==
--- OUTSIDE RECORDS SUMMARY | 2025-08-07 15:32 | XMS_ITS | Clinical Summary ---
Author Organization [facility] Address [address], [address] [address] Phone Care Team Providers Care Real Estate Teacher Name Role Phone Provider, None Primary Care Provider Unavailabl e Allergies No known active allergies Medications Aspirin 81 MG Tablet Take 81 mg by mouth daily. Reported on 04/02/2017 Active Saw Avon 450 MG Capsule Take 1 Cap by mouth daily. Active tamsulosin (FLOMAX) 0.4 MG Capsule Take 1 Cap by mouth every morning. 90 Cap 5 6 Active glimepiride (AMARYL) 4 MG Tablet Take 1 Tab by mouth every morning. 90 Tab 3 6 Active JANUMET XR 50-1000 MG TABLET SR 24 HR Take 1 tablet by mouth two times daily 180 Tab 2 7 Active simvastatin (ZOCOR) 20 MG Tablet Take 1 tablet by mouth nightly 90 Tab 2 7 Active triamcinolone (KENALOG) 0.1 % Cream Apply daily 1 Tube 5 7 Active sulfamethoxazol e-trimethoprim DS (BACTRIM DS, SEPTRA DS) 800-160 MG Tablet TK 1 T PO Q 12 H WC 0 7 Active fluconazole (DIFLUCAN) 100 MG Tablet TK 2 TS PO GALINDO AND TEHN 1 T D TAT 0 7 Active clotrimazole-be tamethasone (LOTRISONE) 1-0.05 % Cream MILLY TO THE AFFECTED AND SURROUNDING AREAS OF SKIN BID IN THE MORNING AND GALEN FOR 2 WEEKS 1 7 Active Active Problems Problem Noted Date Diagnosed Date Dermatitis 04/02/2017 Type 2 diabetes mellitus without complication Flank pain 10/02/2016 Immunizations Immunization Administration Dates Next Due Influenza Vaccine greater than 3 yrs 10/28/2014, 10/06/2013 Influenza Vaccine less than 3 yrs 09/13/2015 PUR FLU HIGH DOSE (FLUZONE) 10/02/2016 Pneumococcal Vaccine - 13 Valent 09/13/2015 Pneumococcal Vaccine Adult - 23 Valent 4 TDAP Vaccine 07/29/2014 Family History Medical History Relation Name Comments Heart Attack Father Heart Disease Mother Relation Name Status Comments Father Mother Alive Social History Tobacco Use Types Packs/Day Years Used Date Smoking Tobacco: Never Smokeless Tobacco: Never Tobacco Cessation:Counseling Given: Yes Alcohol Use Standard Drinks/Week Comments Yes 2 (1 standard drink = 0.6 oz pur e alcohol) Sex and Gender Information Value Date Recorded Sex Assigned at Not on file 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 Gender Identity Not on file Sexual Orientation Not on file Last Filed Vital Signs Vital Sign Reading Time Taken Comments Blood Pressure 120/78 06/01/2017 10:25 AM CDT Pulse 66 06/01/2017 10:25 AM CDT Temperature 36.4 C (97.6 F) 06/01/2017 10:25 AM CDT Respiratory Rate 18 06/01/2017 10:25 AM CDT Oxygen Saturation 98% 06/01/2017 10:25 AM CDT Inhaled Oxygen Concentration - - Weight 84.4 kg (186 lb) 06/01/2017 10:25 AM CDT Height 182.9 cm (6') 06/01/2017 10:25 AM CDT Body Mass Index 25.23 06/01/2017 10:25 AM CDT Plan of Treatment Health Maintenance Due Date Last Done Comments Diabetes: Foot Exam 1950 Hepatitis C Virus (HCV) Screening 1950 Zoster Immunization (1 of 2) 1999 Diabetes: Eye Exam 05/10/2017 05/10/2016 Diabetes: Hemoglobin A1c 09/30/2017 017, 03/29/2016, 01/26/2016, Additional history exists Diabetes: Nephropathy Screening 03/30/2018 03/30/2017, 06/08/2016, 03/29/2016, Additional history exists Respiratory Syncytial Virus (RSV) Immunization (Adult) (1 - 1-dose 75+ series) 2024 SARS-COV-2 Immunization ( - 2023- season) 2024 Td Immunization Every 10 Years (Adults With 1 Tdap) 07/29/2024 07/29/2014 Influenza Immunization (#1) 07/20/202509/19, 09/13/2015, 10/28/2014, Additional history exists Pneumococcal Immunization (50+ years) Completed 09/13/2015, 07/29/2014 Pneumococcal Immunization Combined Discontinued 09/13/2015, 07/29/2014 Colorectal Cancer Screening Discontinued Immunochemical Fecal Occult Blood Discontinued 08/16/2017 Cologuard Discontinued Colonoscopy Discontinued Hepatitis B Immunization Aged Out No longer eligible based on patient's age to complete this topic Human Papillomavirus (HPV) Immunization Aged Out No longer eligible based on patient's age to complete this topic Meningococcal Immunization (ACWY) Aged Out No longer eligible based on patient's age to complete this topic Rotavirus Immunization Aged Out No lo nger eligible based on patient's age to complete this topic Procedures Procedure Name Priority Date/Time Associated Diagnosis Comments STOOL, OCCULT BLOOD IMMUNOASSAY (IFOB) Routine 08/16/2017 CMP (COMPREHENSIVE METABOLIC PANEL) Routine 03/30/2017 9:35 AM CDT Dyslipidemia HEMOGLOBIN A1C W/ ESTIMATED GLUCOSE Routine 03/30/2017 9:35 AM CDT Type 2 diabetes mellitus without complication, with long-term current use of insulin (<HCC>) HM DILATED EYE EXAM Routine 05/10/2016 from Last 3 Months or Most Recently Relevant to Health Maintenance Results * STOOL, OCCULT BLOOD IMMUNOASSAY (IFOB) (08/16/2017) Specimen of unknown material (specimen) STOOL SPECIMEN / Unknown Ward Nunez DO BODY FLUIDS & STOOLS ORDERABLES Final Result * (ABNORMAL) HEMOGLOBIN A1C W/ ESTIMATED GLUCOSE (03/30/2017 9:35 AM CDT) HGB-A1C 7.4(H) 4.4 - 6.4 % 03/30/2017 12:37 PM CDT [facility] Est Average Glucose 165.7 mg/dL 03/30/2017 12:37 PM CDT [facility] Blood specimen (specimen) Venipuncture / Unknown 03/30/2017 9:35 AM CDT 03/30/2017 9:35 AM CDT Narrative [facility] - 03/30/2017 12:37 PM CDT HEMOGLOBIN A1C: DIABETIC PATIENTS: WELL-CONTROLLED: 6.2 - 7.0 INTERMEDIATE WELL-CONTROLLED: 7.0 - 9.0 POORLY-CONTROLLED: >9.0 us Ward Nunez DO CHEMISTRY ORDERABLES Final Resul t [facility] [address] [place] [address] * (ABNORMAL) CMP (COMPREHENSIVE METABOLIC PANEL) (03/30/2017 9:35 AM CDT) SODIUM 136 131 - 143 mmol/L 03/30/2017 2:06 PM CDT [facility] POTASSIUM 4.4 3.5 - 5.1 mmol/L 03/30/2017 2:06 PM CDT [facility] CHLORIDE 104 100 - 110 mmol/L 03/30/2017 2:06 PM CDT [facility] CO2, VENOUS 23 22 - 32 mmol/L 03/30/2017 2:06 PM CDT [facility] ANION GAP 13.4 8.0 - 20.0 mmol/L 03/30/2017 2:06 PM CDT [facility] GLUCOSE 160(H) 70 - 105 mg/dL 03/30/2017 2:06 PM CDT [facility] BUN 18 10 - 31 mg/dL 03/30/2017 2:06 PM CDT [facility] CREATININE, BLOOD 1.32(H) 0.60 - 1.30 mg/dL 03/30/2017 2:06 PM CDT [facility] BUN/CREATININE RATIO 14 12 - 20 ratio 03/30/2017 2:06 PM CDT [facility] TOTAL PROTEIN 7.4 6.0 - 8.3 g/dL 03/30/2017 2:06 PM CDT [facility] ALBUMIN 4.5 3.5 - 5.2 g/dL 03/30/2017 2:06 PM CDT [facility] A/G RATIO 1.6 1.0 - 2.0 03/30/2017 2:06 PM CDT [facility] CALCIUM 8.9 8.9 - 10.3 mg/dL 03/30/2017 2:06 PM CDT [facility] T BILI 0.7 0.3 - 1.2 mg/dL 03/30/2017 2:06 PM CDT [facility] SGOT (AST) 20 1 - 40 U/L 03/30/2017 2:06 PM CDT [facility] SGPT (ALT) 18 1 - 40 U/L 03/30/2017 2:06 PM CDT [facility] ALKALINE PHOSPHATASE 68 40 - 130 U/L 03/30/2017 2:06 PM CDT [facility] GFR, EST. NONAFRICAN 54(L) >=60 03/30/2017 2:06 PM CDT [facility] GFR, EST. >60 >=60 03/30/2017 2:06 PM CDT [facility] Comment: Creatinine Clearance is the preferred criteria for selecting drug dose adjustments in renally impaired patients. The GFR is provided as additional pertinent clinical information. GFR is reported in mL/min/1.73 sq m. Blood specimen (specimen) Venipuncture / Unknown 03/30/2017 9:35 AM CDT 03/30/2017 9:35 AM CDT us Ward Nunez DO CHEMISTRY ORDERABLES Final Resul t [facility] [address] [place] [address] * HM DILATED EYE EXAM (05/10/2016) us Not On File Provider PROCEDURE/MINOR SURGICAL OR DERABLES Final Result from Last 3 Months or Most Recently Relevant to Health Maintenance [facility] Care Teams Real Estate Teacher Relationship Specialty Start Date End Date Provider, None [place] PCP - General 05/04/21
--- OUTSIDE RECORDS SUMMARY | 2025-08-07 15:32 | XMS_ITS | Clinical Summary ---
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 6 Active metFORMIN XR (GLUCOPHAGE XR) 500 mg 24 hr tabletIndicatio ns:Prevention of Type 2 Diabetes Mellitus,hold day before and day of surgery Take 2 tablets (1,000 mg total) by mouth 2 (two) times a day 9 Active simvastatin (ZOCOR) 20 mg tablet Take 1 tablet (20 mg total) by mouth every morning 7 Active LANTUS 100 unit/mL (3 mL) pen for injection 2 Active omeprazole (PriLOSEC) 40 mg capsule 1 capsule (40 mg total) daily 3 Active tamsulosin (FLOMAX) 0.4 mg extended release capsuleIndicati ons:BPH with obstruction/low er urinary tract symptoms,OAB (overactive bladder) Take 1 capsule (0.4 mg total) by mouth daily 90 capsule 3 4 Active oxyBUTYnin XL (DITROPAN-XL) 10 mg 24 hr tabletIndicatio ns:BPH with obstruction/low er urinary tract symptoms,OAB (overactive bladder) TAKE 1 TABLET BY MOUTH DAILY 100 tablet 2 5 Active Active Problems Problem Noted Date Diagnosed Date Benign prostatic hyperplasia 03/23/2022 OAB (overactive bladder) 03/23/2022 Other constipation 02/08/2022 Postoperative urinary retention 04/11/2020 Gross hematuria 04/11/2020 Acute kidney injury superimposed on CKD 04/11/20 20 Pyuria 04/11/2020 Status post cystoscopy 04/11/2020 Lower urinary tract symptoms (LUTS) 04/06/2020 Overview (04/06/2020): Added automatically from request for surgery [id number] Bladder mass 04/06/2020 Overview (04/06/2020): Added automatically from request for surgery [id number] Left renal stone 10/06/2019 Overview (10/06/2019): Added automatically from request for surgery [id number] Hydroureteronephrosis 08/29/2019 Overview (08/29/2019): Added automatically from request for surgery [id number] Bilateral renal stones 08/29/2019 Overview (08/29/2019): Added automatically from request for surgery [id number] Bladder wall thickening 08/19/2019 Overview (08/19/2019): Added automatically from request for surgery [id number] Type 2 diabetes mellitus without complication Dermatitis 04/02/2017 04/24/2023 Flank pain 10/02/2016 04/24/2023 Leukocytosis Surgical History Surgery Date Site/Laterality Comments LITHOTRIPSY x 6- multiple with stents APPENDECTOMY COLONOSCOPY 11/19/2014 - 11/18/2015 URETEROSCOPY 10/08/2019 with renal stent placement TRANSURETHRAL RESECTION OF BLADDER patient states no resection, only biopsies- negative for cancer pt states Medical History Medical History Date Comments Kidney stone GERD (gastroesophageal reflux disease) Bladder tumor Type 2 diabetes mellitus 20 year s Cancer (HCC) BCC Nose Hematuria Weight loss Erectile dysfunction H/O urinary frequency not emptyi ng bladder completely Bladder wall thickening Family History Medical History Relation Name Comments Heart attack Father Transient ischemic attack Mother Stroke Sister Anesthesia problems Neg Hx Relation Name Status Comments Father of [place] age 70s Mother TIAs age 90s Sister Alive CVA age 70s Social History Tobacco Use Types Packs/Day Years Used Date Smoking Tobacco: Never Smokeless Tobacco: Never Tobacco Cessation:Counseling Given: Not Answered Alcohol Use Standard Drinks/Week Comments Yes 0 (1 standard drink = 0.6 oz pur e alcohol) occasionally AUDIT-C Answer Date Recorded Q1: How often do you have a drink containing alc ohol? Monthly or less 04/08/2025 Average Number of Drinks Not on file 025 Frequency of Binge Drinking Not on file 03/20 PHQ-2 Answer Date Recorded PHQ-2 Total Score (If total score is 3 or more points, staff should administer the PHQ-9) 0 04/11/2020 Personal Safety Answer Date Recorded Have you ever been in or are you currently in a harmful physical or emotional relationship or is someone making you feel afraid or unsafe? 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 Respiratory Rate 16 03/21/2023 3:30 PM CDT Oxygen Saturation 99% 03/21/2023 3:30 PM CDT Inhaled Oxygen Concentration - - Weight 88.5 kg (195 lb) 04/08/2025 1:23 PM CDT Height 182.9 cm (6') 04/08/2025 1:23 PM CDT Body Mass Index 26.45 04/08/2025 1:23 PM CDT Plan of Treatment Health Maintenance Due Date Last Done Comments Albumin Creatinine Ratio, Urine 1950 Hepatitis C Screening 1950 Dilated Eye Exam 1950 Foot Exam 1950 Lipid Panel 1949 Hepatitis B Screening 1967 Zoster Vaccine (1 of 2) 1999 Well Visit 65+ 2014 Depression Screening 04/10/2021 04/10/2020 Fall Risk Assessment 03/21/2024 03/21/2023 DTaP/Tdap/Td Vaccine (3 - Td or Tdap) 07/29/2024 07/29/2014, 07/29/2014 eGFR 08/30/2024 08/30/2023, 04/0 05/2023, 04/11/2020, Additional history exists Hemoglobin A1C 09/02/2024 03/03/2024 Influenza Vaccine (#1) 2025 6, 09/13/2015, 10/28/2014, Additional history exists Pneumococcal vaccine 65+ Completed 015, 08/14/2015, 07/29/2014 Medical Devices Implanted Type Area Neck Band Maker Device Identifier Shelf Expiration Date Model / Serial / Lot [employer] Prosthesis Uro Prostate Urethra Cartridge Urolift 2 Ul2-C - [id number] Implanted:Qty: 4 on 03/21/2023 by Kb Mleara MD at [facility] [employer] [id number] 10/18/2023 UL2-C / / [id number] Explanted Type Area Neck Band Maker Device Identifier Shelf Expiration Date Model / Serial / Lot [employer] 180-223 Contour 6fr 26cm Large Inner Lumen Low Profile Bladder [employer] Latex Free - [id number] Implanted:Qty: 1 on 09/23/2019 by Carlos Levy MD at [facility] Explanted:Qty: 1 on 10/08/2019 at [facility] Stent Right: Ureter [employer] 05/21/2022 180-223 / / [id number] [employer] 180-223 Contour 6fr 26cm Large Inner Lumen Low Profile Bladder [employer] Latex Free - [id number] Implanted:Qty: 1 on 10/08/2019 by Carlos Levy MD at [facility] Explanted:Qty: 1 on 10/15/2019 by Carlos Levy MD Left: Ureter [employer] 06/15/2022 180-223 / / [id number] Procedures Procedure Name Priority Date/Time Associated Diagnosis Comments HEMOGLOBIN A1C Routine 03/03/2024 1:11 PM CDT EGFR Routine 08/30/2023 12:13 PM CDT Stage 3a chronic kidney disease (HCC) from Last 3 Months or Most Recently Relevant to Health Maintenance Results * Hemoglobin A1c (03/03/2024 1:11 PM CDT) Blood Vishal Provider LAB BLOOD ORDERABLES Gretta l Result EXTERNAL LAB * eGFR (08/30/2023 12:13 PM CDT) eGFR 42 mL/min/1. 73 m2 Comment: Interpretive Data Reference Interval Normal >/= 90 mL/min/1.73m2 Mildly decreased* 60 - 89 mL/min/1.73m2 Mildly to moderately decreased 45 - 59 mL/min/1.73m2 Moderately to severely decreased 30 - 44 mL/min/1.73m2 Severely decreased 15 - 29 mL/min/1.73m2 Kidney Failure < 15 mL/min/1.73m2 *Relative to young adult level Estimated glomerular filtration rate is determined by the 2020 CKD-EPI equation recommended by the National Kidney Foundation (A Unifying Approach to GFR Estimation: Recommendations of the NKF-ASK Task Force on Reassessing the Inclusion of Race in Diagnosing Kidney Disease, JASN 2020). The CKD-EPI equation should not be used for patients with unstable renal function and has not been validated in children and those over 70. Current interpretive data was last reviewed 2021. Testing performed by: [facility], [address] [place] [address]., [id number] Blood 08/30/2023 12:1 3 PM CDT 08/30/2023 1:46 PM CDT Kb Melara MD LAB BLOOD ORDERABLES Final Resul t [facility] [address] [facility] Department [place] [address] from Last 3 Months or Most Recently Relevant to Health Maintenance Insurance [facility] Address: [place] [address] [facility] MED[facility] Address: [place] [id number] [facility] MED[facility] Address: [place] [phone] Advance Directives For more information, please contact: [phone] * Full Code (Latest Code Status on File) Date Activated Date Inactivated Comments 04/10/2020 9:16 PM 04/11/2020 5:51 PM * Full Code Date Activated Date Inactivated Comments 04/10/2020 8:52 PM 04/10/2020 9:16 PM Care Teams Spinning Frame Cleaner Relationship Specialty Start Date End Date Jasson Singh MD [address] [place] [address] PCP - General Family Medicine 08/11/19 Carlos Levy MD [address] [place] [address] Consulting Physician Urology 04/11/20
[2025-08-07 16:41] LABS: Alanine Aminotransferase 19 U/L (6-50); Albumin Level 4.1 g/dL (3.5-5.1); Alkaline Phosphatase 68 U/L (38-126); Anion Gap 7 mmol/L (4-12); Aspartate Amino Transferase 28 U/L (17-59); Bilirubin,Total 0.5 mg/dL (0.2-1.3); Blood Urea Nitrogen 26 mg/dL (9-20); Calcium 9.1 mg/dL (8.4-10.2); Carbon Dioxide 23 mmol/L (22-30); Chloride 108 mmol/L (98-107); Estimated Glomerular Filt Rate 34; Glucose 140 mg/dL (65-110); Potassium 4.5 mmol/L (3.4-5.0); Sodium 138 mmol/L (137-145); Total Protein 6.9 g/dL (6.3-8.2)
[2025-08-07 16:42] LABS: Hemoglobin A1C 6.9 % (<5.7)
== END 2025-08-07 15:30 | disposition home or self-care (01) ==
PROVIDERS: PCP Family Medicine; Referring Provider Internal Medicine Nephrology; Visit Provider Physician Assistant Medical
DX: E11.29 Type 2 diabetes mellitus with other diabetic kidney complication (principal); I12.9 Hypertensive chronic kidney disease with stage 1 through stage 4 chronic kidney disease, or unspecified chronic kidney disease; N18.31 Chronic kidney disease, stage 3a; R80.9 Proteinuria, unspecified
CPT/HCPCS: 36415; 80053; 83036